=== PATIENT | male | born 1970 ===

== ENCOUNTER 2019-04-20 07:13 | Inpatient (IN) | payer OTHER ==
[2019-04-20 07:55] LABS: Basophils % (Auto) 0.4 % (0.0-1.8); Eosinophils # (Auto) 0.1 K/mm3 (0.0-0.4); Eosinophils % (Auto) 0.7 % (0.0-4.3); Hematocrit 38.9 % (35.5-45.6); Hemoglobin 13.1 gm/dl (11.8-15.2); Lymphocytes # (Auto) 3.4 K/mm3 (1.2-5.4); Lymphocytes % (Auto) 31.9 % (13.4-35.0); Mean Corpuscular HGB Conc 34 % (32-34); Mean Corpuscular Volume 85 fl (84-94); Monocytes # (Auto) 0.7 K/mm3 (0.0-0.8); Monocytes % (Auto) 6.2 % (0.0-7.3); Platelet Count 257 K/mm3 (140-440); Red Blood Count 4.56 M/mm3 (3.65-5.03); Red Cell Distribution Width 14.3 % (13.2-15.2)
[2019-04-20 08:15] LABS: BUN/Creatinine Ratio 71; Blood Urea Nitrogen 50 mg/dL (9-20); Calcium 8.6 mg/dL (8.4-10.2); Hemolysis Index 7
[2019-04-20 08:29] LABS: INR 0.96 (0.87-1.13)
[2019-04-20 08:30] LABS: Partial Thromboplastin Time 27.9 Sec. (24.2-36.6)
[2019-04-20] MEDS ORDERED: PROTONIX IV ONE (08:54)
[2019-04-20] MEDS ORDERED: NACL 0.9% 1000 ML 2,000 ML IV ONE (08:54)
[2019-04-20] MEDS ORDERED: PEPCID IV ONE (08:54)
[2019-04-20] MEDS ORDERED: ZOFRAN IV ONE (08:55)
--- NOTE | 2019-04-20 08:55 | Emergency Department Report ---
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 He presents to the emergency room with a complaint of black stool, resolved nausea, malaise and fatigue which started yesterday. He currently denies all physical pain. He denies headache, neck pain, chest pain, abdominal pain, shortness of breath, urinary symptoms. He indicates he does not take systemic anticoagulation. He reports that yesterday, he was outside, doing yardwork, and he felt somewhat nauseous and weak. He thinks it is had rectal bleeding in the past, a few years ago, in [facility], but he cannot recall the details. His nausea and weakness is now resolved, the black stools constant, it is painless, it does not radiate anywhere, and does not have exacerbating or relieving factors. MD complaint: melena -: Gradual Radiation: none Severity scale (0 -10): 0 Consistency: constant Improves with: none Worsens with: none Context: history of GI bleed Associated Symptoms: nausea - Related Data Allergies Allergy/AdvReac Type Severity Reaction Status Date / Time No Known Allergies Allergy Unverified 04/20/19 07:19 ED Review of Systems ROS: Stated complaint: HBP Other details as noted in HPI Constitutional: malaise. denies: fever, weakness Eyes: denies: eye discharge ENT: denies: epistaxis Respiratory: denies: cough Cardiovascular: denies: chest pain Gastrointestinal: melena. denies: abdominal pain, vomiting, hematemesis, hematochezia Genitourinary: denies: dysuria Musculoskeletal: denies: back pain Skin: denies: lesions Neurological: weakness Psychiatric: denies: anxiety ED Past Medical Hx - Past Medical History Hx Hypertension: Yes - Social History Smoking Status: Unknown if ever smoked ED Physical Exam - General Limitations: Language Barrier General appearance: alert, in no apparent distress - Head Head exam: Present: atraumatic, normocephalic - Eye Eye exam: Present: normal appearance, EOMI. Absent: nystagmus - ENT ENT exam: Present: normal exam, normal orophraynx, mucous membranes moist, normal external ear exam - Neck Neck exam: Present: normal inspection, full ROM. Absent: tenderness, meningismus - Respiratory Respiratory exam: Present: normal lung sounds bilaterally. Absent: respiratory distress - Cardiovascular Cardiovascular Exam: Present: normal rhythm, tachycardia, normal heart sounds. Absent: systolic murmur, diastolic murmur, rubs, gallop - GI/Abdominal GI/Abdominal exam: Present: soft. Absent: distended, tenderness, guarding, r ebound, rigid, pulsatile mass - Rectal Rectal exam: Present: normal inspection, heme (+) stool, black stool, other (chaperoned by nurse Brandy Grace). Absent: bloody stool, fecal impaction, hemorrhoids, mass, tenderness, normal prostate, prostate tenderness, prostate enlargement - Extremities Exam Extremities exam: Present: normal inspection, full ROM, other (2+ pulses noted in the bilateral upper, lower extremities. Compartments soft. No long bony tenderness. The pelvis is stable.). Absent: pedal edema, joint swelling, calf tenderness - Back Exam Back exam: Present: normal inspection, full ROM. Absent: tenderness, CVA tenderness (R), CVA tenderness (L), vertebral tenderness - Neurological Exam Neurological exam: Present: alert, other (Extraocular movements intact. Tongue midline. No facial droop. Facial sensation intact to light touch in the V1, V2, V3 distribution bilaterally. 5 and 5 strength in 4 extremities.. Sensation is intact to light touch in 4 extremities.). Absent: motor sensory deficit - Psychiatric Psychiatric exam: Present: normal affect, normal mood - Skin Skin exam: Present: warm, dry, intact, normal color. Absent: rash ED Course Vital Signs 04/20/19 04/20/19 04/20/19 07:40 07:58 08:04 Temperature 100.0 F H Pulse Rate 106 H 108 H Respiratory 18 18 18 Rate Blood Pressure 130/82 121/76 [Right] O2 Sat by Pulse 18 L 99 Oximetry 04/20/19 04/20/19 08:50 08:52 Temperature 99.8 F H Pulse Rate 122 H Respiratory 18 Rate Blood Pressure 136/84 [Right] O2 Sat by Pulse 99 Oximetry - Reevaluation(s) Reevaluation #1: 04/20/19 09:55 Discussed with gastroenterology, Dr. Hernandez, who agrees with plan of care and indicates his group will follow in consultation. ED Medical Decision Making - Lab Data Result diagrams: 04/20/19 07:46 04/20/19 07:46 Vital Signs 04/20/19 04/20/19 04/20/19 07:40 07:58 08:04 Temperature 100.0 F H Pulse Rate 106 H 108 H Respiratory 18 18 18 Rate Blood Pressure 130/82 121/76 [Right] O2 Sat by Pulse 18 L 99 Oximetry 04/20/19 04/20/19 08:50 08:52 Temperature 99.8 F H Pulse Rate 122 H Respiratory 18 Rate Blood Pressure 136/84 [Right] O2 Sat by Pulse 99 Oximetry Labs 04/20/19 04/20/19 04/20/19 07:46 07:46 08:02 WBC 10.7 RBC 4.56 Hgb 13.1 Hct 38.9 MCV 85 MCH 29 MCHC 34 RDW 14.3 Plt Count 257 Lymph % (Auto) 31.9 [place] % (Auto) 6.2 Eos % (Auto) 0.7 Baso % (Auto) 0.4 Lymph # 3.4 [place] # 0.7 Eos # 0.1 Baso # 0.0 Seg Neutrophils % 60.8 Seg Neutrophils # 6.5 PT 13.4 INR 0.96 APTT 27.9 Sodium 139 Potassium 3.8 Chloride 100.1 Carbon Dioxide 23 Anion Gap 20 BUN 50 H Creatinine 0.7 L Estimated GFR > 60 BUN/Creatinine Ratio 71 Glucose 182 H Calcium 8.6 - EKG Data -: EKG Interpreted by N[place] EKG shows normal: sinus rhythm Rate: tachycardia - EKG Data When compared to previous EKG there are: previous EKG unavailable 04/20/19 09:45 Sinus tachycardia, 117 bpm, normal axis, QTC prolonged, not having chest pain, there is no prior for comparison, this is an abnormal EKG, this EKG is not consistent with ST elevation myocardial infarction. - Medical Decision Making Differential diagnosis, including not limited to: GERD, gastritis, hiatal hernia, malignancy, upper GI bleed Assessment and plan: 48-year-old gentleman who was tachycardic, has black tarry stool, guaiac positive, not on systemic anticoagulation, elevated blood urea nitrogen with normal creatinine, suggestive of upper GI bleed. He is afebrile and hemodynamically stable. He appears quite comfortable. He is not having any abdominal pain at this time. 2 large-bore IVs have been ordered. Protonix and Pepcid have been ordered. Nothing by mouth status has been ordered. Recommended admission for presumed upper GI bleed. Discussed this with patient, using quality control lab tech, the patient endorses and verbalizes understanding. Hospital physician, Dr. Middleton to admit patient to the medical service. Gastroenterology application spec has been paged, we are waiting for them to call back. Critical care attestation.: If time is entered above; I have spent that time in minutes in the direct care of this critically ill patient, excluding procedure time. ED Disposition Clinical Impression: UGIB (upper gastrointestinal bleed) Disposition: OP ADMIT IP TO THIS HOSP Is pt being admited?: Yes Does the pt Need Aspirin: No Condition: Serious Referrals: NILAY FLORES MD [Primary Care Provider] - 3-5 Days Forms: Accompanied Note
[2019-04-20] MEDS: NACL 0.9% 1000 ML 1,000 ML IV ONE ×2 (09:02→10:15)
--- NOTE | 2019-04-20 10:26 | History and Physical Report ---
History of Present Illness Date of examination: 04/20/19 Chief complaint: Black stools History of present illness: Patient is a 48 yo [place]ic speaking man with a history of hypertension and prior black stools in 2016 in [facility] who presents with one episode of severe black tarry stool x 1 days with nausea but vomiting or radiating abd pains. There is no aggravating or relieving factor. He denies nsaids but I am not sure he understood the question. He denies headache, neck pain, chest pain, abdominal pain, shortness of breath, urinary symptoms. He indicates he does not take systemic anticoagulation. He reports that yesterday, he was outside, doing yardwork, and he felt somewhat nauseous and weak. He black stools the past, a few years ago, in [facility], he believes it was related to beer but he cannot recall the details but he was admitted to the hospital (he thinks beer is not as bad as "alcohol" but he doesn't drink anymore). He doesn't think he had an EGD or colonoscopy. +FOBT in ED. Insurance Plan Specialist service used. PMH: as hpi PSH: he denies any surgeries SH: he denies tob use/etoh abuse/drug abuse FH: he denies hypertension, DM ROS: Constitutional: denies: fever ENT: denies: throat or neck pain Respiratory: denies: cough, shortness of breath Cardiovascular: denies: chest pain Endocrine: denies unexplained weight loss or gain Gastrointestinal: denies: abdominal pain, +nausea Genitourinary: denies: dysuria Rectal: denies no incontinence, no bleeding, no itching, no discharge Musculoskeletal: denies swelling, myaglia, muscle weakness Skin: denies: rash Neurological: denies: headache Hematological/Lymphatic: denies: easy bleeding or easy bruising Allergic/Immunologic: no urticaria, no allergic rhinitis, no anaphylaxis Psych: denies sadness or hopelessness, SI/HI Medications and Allergies Allergies Allergy/AdvReac Type Severity Reaction Status Date / Time No Known Allergies Allergy Unverified 04/20/19 07:19 Exam - Physical Exam Narrative exam: Gen: WDWN, NAD, Awake, Alert, Orientated x 3 HEENT: NCAT, EOMI, PERRL, OP Clear Neck: supple, no adenopathy, no thyromegaly, no JVD CVS/Heart: RRR, normal S1S2, pulses present bilaterally Chest/Lungs: CTA B, Symmetrical chest expansion, good air entry bilaterally GI/Abdomen: soft, NTND, good bowel sounds, no guarding or rebound /Bladder: no suprapubic tenderness, no CVA or paraspinal tenderness Extermity/Skin: no c/c/e, no obvious rash MSK: FROM x 4 Neuro: CN 2-12 grossly intact, no new focal deficits Psych: calm - Constitutional Vitals: Temp Pulse Resp BP Pulse Ox 99.8 F H 122 H 18 136/84 99 04/20/19 08:50 04/20/19 08:52 04/20/19 08:52 04/20/19 08:52 04/20/19 08:52 Results - Labs CBC & Chem 7: 04/20/19 07:46 04/20/19 07:46 Labs: Abnormal lab results 04/20/19 Range/Units 07:46 BUN 50 H (9-20) mg/dL Creatinine 0.7 L (0.8-1.5) mg/dL Glucose 182 H (75-100) mg/dL Assessment and Plan Patient is a 48 yo Icelandic speaking man with a history of hypertension and prior black stools in 2016 in [facility] who presents with one episode of severe black tarry stool x 1 days with nausea but vomiting or radiating abd pains. There is no aggravating or relieving factor. He denies nsaids but I am not sure he understood the question. He denies headache, neck pain, chest pain, abdominal pain, shortness of breath, urinary symptoms. He indicates he does not take systemic anticoagulation. He reports that yesterday, he was outside, doing yardwork, and he felt somewhat nauseous and weak. He black stools the past, a few years ago, in [facility], he believes it was related to beer but he cannot recall the details but he was admitted to the hospital (he thinks beer is not as bad as "alcohol" but he doesn't drink anymore). He doesn't think he had an EGD or colonoscopy. +FOBT in ED UGIB with normal H/H: monitor h/h closely, treat with ppi, GI consulted, npo until GI evaluates SIRS without organ dysfunction: treat with IVFs, ordered blood cultures, UA and pCXR Hyperglycemia without diagnosis of DM: check a1c, repeat bmp am fasting Hypertension: low salt diet Nausea: treat with iv zofran DVT ppx: scd due to ugib history GI ppx: iv protonix full code home med rec not done Follow up on a1c, ua, blood cultures, pCXR
[2019-04-20] MEDS ORDERED: ZOFRAN IV PRN (10:31)
[2019-04-20] MEDS ORDERED: PROTONIX IV SCH (11:00)
--- NOTE | 2019-04-20 11:26 | XRay Report ---
AP CHEST: HISTORY: Low-grade fever, nausea and vomiting AP view of the chest demonstrates a normal mediastinal and cardiac contour with clear lungs and normal bony and soft tissue structures. IMPRESSION: Unremarkable AP chest.
[2019-04-20] MEDS: NACL 0.9% 1000 ML 1,000 ML IV SCH (12:33)
--- NOTE | 2019-04-20 13:15 | Consultation ---
History of Present Illness - Reason for Consult Consult date: 04/20/19 Melena Requesting physician: FRANSISCO KELLOGG - History of Present Illness Mr. Watts is a 48-year-old [facility] man who apparently came to the emergency room because he thought his blood pressure was high, and because he had a black bowel movement today. He did have some nausea. He denies abdominal pain or vomiting. He has a history of having something similar in [facility] for which he was being treated with medications from there. There is no chest pain shortness of breath or lightheadedness. He does take an aspirin daily for the last 9 years for something related to his heart. There is no history of recent alcohol use, and no history of liver disease. Past History Past Medical History: hypertension Past Surgical History: No surgical history Social history: denies: smoking, alcohol abuse Medications and Allergies Allergies Allergy/AdvReac Type Severity Reaction Status Date / Time No Known Allergies Allergy Unverified 04/20/19 07:19 Home Medications Medication Instructions Recorded Confirmed Last Taken Type Losartan/Hydrochlorothiazide 1 each PO QAM 04/20/19 04/20/19 04/20/19 History [Losartan-Hctz 100-25 mg Tab] Active Meds: Active Medications Sodium Chloride (Nacl 0.9% 1000 Ml) 1,000 mls @ 100 mls/hr IV DIRECT SAMSON Last Admin: 04/20/19 12:33 Dose: 100 mls/hr Documented by: Ondansetron HCl (Zofran) 4 mg IV Q4H PRN PRN Reason: Nausea And Vomiting Pantoprazole Sodium (Protonix) 40 mg IV BID SAMSON Review of Systems All systems: negative (as noted) Exam - Constitutional Vitals: Temp Pulse Resp BP Pulse Ox 99.2 F 107 H 18 140/88 100 04/20/19 12:29 04/20/19 12:29 04/20/19 12:29 04/20/19 12:29 04/20/19 12:29 General appearance: Present: no acute distress - EENT Eyes: Present: PERRL, EOM intact ENT: hearing intact - Neck Neck: Present: supple - Respiratory Respiratory effort: normal Respiratory: bilateral: CTA - Cardiovascular Rhythm: regular Heart Sounds: Present: S1 & S2 - Extremities Extremities: No edema - Abdominal General gastrointestinal: Present: soft, non-tender - Rectal Rectal Exam: other (Melena, Heme+ per ER) Results - Labs CBC & Chem 7: 04/20/19 07:46 04/20/19 07:46 Labs: Abnormal lab results 04/20/19 Range/Units 07:46 BUN 50 H (9-20) mg/dL Creatinine 0.7 L (0.8-1.5) mg/dL Glucose 182 H (75-100) mg/dL Assessment and Plan 1. Melena - could be related to PUD, though pt asymptomatic and H/H normal. BUN/Cr is elevated. - agree with PPI - will do EGD to assess - monitor H/H and transfuse as needed.
[2019-04-20] MEDS ORDERED: DIPRIVAN 10 MG/ML IV ONE ×2 (13:46→13:52)
--- NOTE | 2019-04-20 14:02 | Post Operative Note ---
Pre-op diagnosis: Melena Post-op diagnosis: other (Prepyloric ulcer with visible vessel) Findings: 1. Prepyloric ulcer, 1 cm, cratered, with visible vessel, and small amount of adherent blood. 5 clips placed in total. 2. Otherwise normal EGD 3. No evidence of active bleeding. Procedure: EGD with clip placement Anesthesia: MAC Surgeon: KUNAL BAUTISTA Estimated blood loss: none Pathology: none Condition: stable Disposition: floor (1. IV PPI drip x 48 hrs. 2. Monitor H/H and transfuse as needed. 3. Clear liquids tomorrow.)
[2019-04-20] MEDS ORDERED: NEO SYNEPHRINE/NS Syringe(OR USE) IV ONE (14:21)
--- NOTE | 2019-04-20 14:24 | Anesthesia Consultation ---
Anesthesia Consult and Med Hx Date of service: 04/20/19 - Airway Anesthetic Teeth Evaluation: Good ROM Head & Neck: Adequate Mental/Hyoid Distance: Adequate Mallampati Class: Class II Intubation Access Assessment: Probably Good - Pre-Operative Health Status ASA Pre-Surgery Classification: ASA2, Emergency Proposed Anesthetic Plan: MAC - Cardiovascular System Hx Hypertension: Yes - Gastrointestinal Hx Ulcer: Yes Hx Gastroesophageal Reflux Disease: Yes - Hematic Hx Anemia: Yes - Other Systems Hx Obesity: Yes (overweight)
--- NOTE | 2019-04-20 14:24 | Operative Report ---
PROCEDURE: Upper endoscopy with clip placement. PREOPERATIVE DIAGNOSIS: Melena. POSTOPERATIVE DIAGNOSIS: Prepyloric ulcer with visible vessel. SEDATION: MAC by Anesthesia. HISTORY: The patient is a 48-year-old man who was well until this morning when he had a bout of melena and some nausea. His hemoglobin is normal. Procedure indications, risks, and benefits were explained and consent was obtained. The patient was placed in left lateral decubitus position and sedated. [employer] video upper scope was passed through the mouth and oropharynx into the descending duodenum. Scope was then gradually withdrawn with close inspection of mucosa. FINDINGS: 1. Normal appearing esophagus. 2. 1 cm, cratered, prepyloric ulcer with visible vessel and some small amount of fresh adherent blood. There was no active bleeding. A total of 5 clips were deployed before it was felt that the proper closure of the ulcer and treatment of the vessel was achieved. There was no bleeding. 3. Remainder of gastric antrum, fundus, body, and cardia are normal appearing. 4. Normal appearing duodenal bulb and duodenum. The patient tolerated the procedure well without immediate complications. IMPRESSION: 1. Prepyloric ulcer with visible vessel -- clips placed. 2. Otherwise, normal upper endoscopy. PLAN: 1. IV PPI drip. 2. Monitor H and H and transfuse as needed. 3. Clear liquids starting tomorrow. 4. Check H. pylori antibody. JOB# [id number] HRC/NTS
--- NOTE | 2019-04-20 14:25 | Anesthesia Day of Surgery ---
Anesthesia Day of Surgery - Day of Surgery Patient Examined: Yes Patient H&P Reviewed: Yes Patient is NPO: Yes
[2019-04-20] MEDS ORDERED: PROTONIX 80 MG in NACL 0.9% 100 ML IV SCH (15:00)
[2019-04-20 16:49] LABS: Hemoglobin 11.6 gm/dl (11.8-15.2)
[2019-04-21] MEDS: NACL 0.9% 1000 ML 1,000 ML IV SCH ×2 (05:13→15:15)
[2019-04-21 05:23] LABS: Hematocrit 30.7 % (35.5-45.6); Hemoglobin 10.5 gm/dl (11.8-15.2); Mean Corpuscular HGB Conc 34 % (32-34); Mean Corpuscular Volume 86 fl (84-94); Platelet Count 224 K/mm3 (140-440); Red Blood Count 3.57 M/mm3 (3.65-5.03); Red Cell Distribution Width 14.7 % (13.2-15.2)
[2019-04-21 05:47] LABS: Alanine Aminotransferase 11 units/L (7-56); Albumin 3.4 g/dL (3.9-5); BUN/Creatinine Ratio 36; Blood Urea Nitrogen 25 mg/dL (9-20); Calcium 8.2 mg/dL (8.4-10.2); Hemolysis Index 4
--- NOTE | 2019-04-21 08:28 | Progress Note ---
Assessment and Plan Assessment and plan: Patient is a 48 yo [place] speaking man with a history of hypertension and prior black stools in 2016 in [facility] who presents with one episode of severe black tarry stool x 1 days with nausea but vomiting or radiating abd pains. There is no aggravating or relieving factor. He denies nsaids but I am not sure he understood the question. He denies headache, neck pain, chest pain, abdominal pain, shortness of breath, urinary symptoms. He indicates he does not take systemic anticoagulation. He reports that yesterday, he was outside, doing yardwork, and he felt somewhat nauseous and weak. He black stools the past, a few years ago, in [facility], he believes it was related to beer but he cannot recall the details but he was admitted to the hospital (he thinks beer is not as bad as "alcohol" but he doesn't drink anymore). He doesn't think he had an EGD or colonoscopy. +FOBT in ED. He went for EGD which showed peptic ulcer with visible vessel; moved to [facility] EGD: Pre-op diagnosis: Melena Post-op diagnosis: other (Prepyloric ulcer with visible vessel) Findings: 1. Prepyloric ulcer, 1 cm, cratered, with visible vessel, and small amount of adherent blood. 5 clips placed in total. 2. Otherwise normal EGD 3. No evidence of active bleeding. Procedure: EGD with clip placement Anesthesia: MAC Surgeon: KUNAL BAUTISTA Estimated blood loss: none Pathology: none Condition: stable Disposition: floor (1. IV PPI drip x 48 hrs. 2. Monitor H/H and transfuse as needed. 3. Clear liquids tomorrow.) Acute hemorrhage PUD UGIB with drop in H/H: monitor h/h closely, treat with ppi, GI consulted, npo until GI evaluates SIRS without organ dysfunction: treat with IVFs, ordered blood cultures, UA and pCXR Hyperglycemia without diagnosis of DM: borderline a1c, repeat bmp am fasting Hypertension: low salt diet Nausea: treat with iv zofran DVT ppx: scd due to ugib GI ppx: iv protonix full code home med rec not done A1C with 5.9, ua uncollected, blood cultures pending, pCXR unremarkable History Interval history: Patient was seen and examined. Follow-up on current diagnosis of PUD. No overnight events reported to me. Patient denies any chest pain, shortness breath, nausea/vomiting or severe headaches. Imaging, nursing note, chart, labs and old chart reviewed. Discussed with patient. Hospitalist Physical - Physical exam Narrative exam: Gen: WDWN, NAD, Awake, Alert, Orientated x 3 HEENT: NCAT, EOMI, PERRL, OP Clear Neck: supple, no adenopathy, no thyromegaly, no JVD CVS/Heart: RRR, normal S1S2, pulses present bilaterally Chest/Lungs: CTA B, Symmetrical chest expansion, good air entry bilaterally GI/Abdomen: soft, NTND, good bowel sounds, no guarding or rebound /Bladder: no suprapubic tenderness, no CVA or paraspinal tenderness Extermity/Skin: no c/c/e, no obvious rash MSK: FROM x 4 Neuro: CN 2-12 grossly intact, no new focal deficits Psych: calm - Constitutional Vitals: Temp Pulse Resp BP Pulse Ox 98.7 F 94 H 12 128/78 98 04/21/19 07:00 04/20/19 17:42 04/21/19 03:00 04/20/19 17:42 04/21/19 03:00 General appearance: Present: no acute distress Results - Labs CBC & Chem 7: 04/21/19 04:25 04/21/19 04:25 Labs: Laboratory Last Values WBC 9.1 K/mm3 (4.5-11.0) 04/21/19 04:25 RBC 3.57 M/mm3 (3.65-5.03) L 04/21/19 04:25 Hgb 10.5 gm/dl (11.8-15.2) L 04/21/19 04:25 Hct 30.7 % (35.5-45.6) L 04/21/19 04:25 MCV 86 fl (84-94) 04/21/19 04:25 MCH 29 pg (28-32) 04/21/19 04:25 MCHC 34 % (32-34) 04/21/19 04:25 RDW 14.7 % (13.2-15.2) 04/21/19 04:25 Plt Count 224 K/mm3 (140-440) 04/21/19 04:25 Lymph % (Auto) 31.9 % (13.4-35.0) 04/20/19 07:46 [place] % (Auto) 6.2 % (0.0-7.3) 04/20/19 07:46 Eos % (Auto) 0.7 % (0.0-4.3) 04/20/19 07:46 Baso % (Auto) 0.4 % (0.0-1.8) 04/20/19 07:46 Lymph # 3.4 K/mm3 (1.2-5.4) 04/20/19 07:46 [place] # 0.7 K/mm3 (0.0-0.8) 04/20/19 07:46 Eos # 0.1 K/mm3 (0.0-0.4) 04/20/19 07:46 Baso # 0.0 K/mm3 (0.0-0.1) 04/20/19 07:46 Seg Neutrophils % 60.8 % (40.0-70.0) 04/20/19 07:46 Seg Neutrophils # 6.5 K/mm3 (1.8-7.7) 04/20/19 07:46 PT 13.4 Sec. (12.2-14.9) 04/20/19 08:02 INR 0.96 (0.87-1.13) 04/20/19 08:02 APTT 27.9 Sec. (24.2-36.6) 04/20/19 08:02 Sodium 142 mmol/L (137-145) 04/21/19 04:25 Potassium 3.8 mmol/L (3.6-5.0) 04/21/19 04:25 Chloride 108.0 mmol/L (98-107) H 04/21/19 04:25 Carbon Dioxide 24 mmol/L (22-30) 04/21/19 04:25 14 mmol/L 04/21/19 04:25 BUN 25 mg/dL (9-20) H 04/21/19 04:25 0.7 mg/dL (0.8-1.5) L 04/21/19 04:25 Estimated GFR > 60 ml/min 04/21/19 04:25 36 % 04/21/19 04:25 Glucose 102 mg/dL (75-100) H 04/21/19 04:25 5.9 % (4-6) 04/20/19 16:27 Calcium 8.2 mg/dL (8.4-10.2) L 04/21/19 04:25 0.60 mg/dL (0.1-1.2) 04/21/19 04:25 AST 12 units/L (5-40) 04/21/19 04:25 ALT 11 units/L (7-56) 04/21/19 04:25 46 units/L (35-129) 04/21/19 04:25 5.5 g/dL (6.3-8.2) L 04/21/19 04:25 3.4 g/dL (3.9-5) L 04/21/19 04:25 1.6 % 04/21/19 04:25 Blood Type O POSITIVE 04/20/19 09:11 Antibody Screen Negative 04/20/19 09:11 Active Medications - Current Medications Current Medications: Generic Name Dose Route Start Last Admin Trade Name Freq PRN Reason Stop Dose Admin Sodium Chloride 1,000 mls @ 100 mls/hr 04/20/19 11:00 04/21/19 05:13 Nacl 0.9% 1000 Ml IV 100 mls/hr DIRECT SAMSON Administration Pantoprazole Sodium 80 mg/ 100 mls @ 10 mls/hr 04/20/19 15:00 04/20/19 20:06 Sodium Chloride IV 8 mg/hr DIRECT SAMSON 10 mls/hr Administration 8 MG/HR Ondansetron HCl 4 mg 04/20/19 10:31 Zofran IV Q4H PRN Nausea And Vomiting
[2019-04-21 09:47] LABS: Bacteria,Urine 1+ /HPF (Negative); Bilirubin,Urine NEG (Negative); Blood,Urine NEG (Negative); Color,Urine Yellow (Yellow); Mucus,Urine FEW /HPF; Protein,Urine <15 mg/dL mg/dL (Negative); Urobilinogen,Urine < 2.0 mg/dL (<2.0)
[2019-04-21 11:33] VITALS: BP 103/55
--- NOTE | 2019-04-21 12:38 | Gastroenterology Progress Note ---
<TRAM DE SANTIAGO - Last Filed: 04/21/19 12:38> Assessment and Plan 1.UGIB 2.melena -H/H 10.5/30.7-slight drop -continue to monitor H/H and transfuse as needed -no active signs of bleeding overnight or this am -s/p EGD yesterday that showed a prepyloric ulcer (1 cm) cratered, with visible vessel and small amount of adherent blood (5 clips placed) -clinically, patient is stable. Denies abd pain or N/V. -okay to start on clear liquids -continue protonix drip x 48 hrs -avoid NSAIDs -continue supportive care -will follow Subjective Date of service: 04/21/19 Principal diagnosis: UGIB Interval history: Patient resting in bed w/o acute distress. No active signs of bleeding overnight or this am per pt/nursing. Denies abd pain or N/V. Objective - Constitutional Vitals: Temp Pulse Resp BP Pulse Ox 98.1 F 78 15 103/55 100 04/21/19 11:00 04/21/19 11:30 04/21/19 11:30 04/21/19 11:30 04/21/19 11:30 General appearance: no acute distress - Respiratory Respiratory effort: normal Respiratory: bilateral: CTA - Cardiovascular Rhythm: regular - Gastrointestinal General gastrointestinal: Present: soft, non-tender, non-distended, normal bowel sounds - Neurologic Neurological: alert and oriented x3 - Labs CBC & Chem 7: 04/21/19 04:25 04/21/19 04:25 Labs: Laboratory Results - last 24 hr 04/20/19 04/20/19 04/21/19 16:20 16:27 04:25 WBC 9.1 RBC 3.57 L Hgb 11.6 L 10.5 L Hct 35.0 L 30.7 L MCV 86 MCH 29 MCHC 34 RDW 14.7 Plt Count 224 Sodium Potassium Chloride Carbon Dioxide Anion Gap BUN Creatinine Estimated GFR BUN/Creatinine Ratio Glucose Hemoglobin A1c 5.9 Calcium Total Bilirubin AST ALT Alkaline Phosphatase Total Protein Albumin Albumin/Globulin Ratio Urine Color Urine Turbidity Urine pH Ur Specific [place] Urine Protein Urine Glucose (UA) Urine Ketones Urine Blood Urine Nitrite Urine Bilirubin Urine Urobilinogen Ur Leukocyte Esterase Urine WBC (Auto) Urine RBC (Auto) U Epithel Cells (Auto) Urine Bacteria (Auto) Urine Mucus 04/21/19 04/21/19 04:25 09:15 WBC RBC Hgb Hct MCV MCH MCHC RDW Plt Count Sodium 142 Potassium 3.8 Chloride 108.0 H Carbon Dioxide 24 Anion Gap 14 BUN 25 H Creatinine 0.7 L Estimated GFR > 60 BUN/Creatinine Ratio 36 Glucose 102 H Hemoglobin A1c Calcium 8.2 L Total Bilirubin 0.60 AST 12 ALT 11 Alkaline Phosphatase 46 Total Protein 5.5 L Albumin 3.4 L Albumin/Globulin Ratio 1.6 Urine Color Yellow Urine Turbidity Clear Urine pH 5.0 Ur Specific [place] 1.023 Urine Protein <15 mg/dl Urine Glucose (UA) Neg Urine Ketones Neg Urine Blood Neg Urine Nitrite Neg Urine Bilirubin Neg Urine Urobilinogen < 2.0 Ur Leukocyte Esterase Mod Urine WBC (Auto) 22.0 H Urine RBC (Auto) 3.0 U Epithel Cells (Auto) 5.0 Urine Bacteria (Auto) 1+ Urine Mucus Few <KUNAL BAUTISTA R - Last Filed: 04/21/19 16:36> Assessment and Plan Seen and examined. If continues to do well, adv diet in AM, change to po meds, D/C. Check for H pylori. Objective - Constitutional Vitals: Temp Pulse Resp BP Pulse Ox 98.1 F 78 15 103/55 100 04/21/19 11:00 04/21/19 11:30 04/21/19 11:30 04/21/19 11:30 04/21/19 11:30 - Labs CBC & Chem 7: 04/21/19 04:25 04/21/19 04:25 Labs: Laboratory Results - last 24 hr 04/20/19 04/20/19 04/21/19 16:20 16:27 04:25 WBC 9.1 RBC 3.57 L Hgb 11.6 L 10.5 L Hct 35.0 L 30.7 L MCV 86 MCH 29 MCHC 34 RDW 14.7 Plt Count 224 Sodium Potassium Chloride Carbon Dioxide Anion Gap BUN Creatinine Estimated GFR BUN/Creatinine Ratio Glucose Hemoglobin A1c 5.9 Calcium Total Bilirubin AST ALT Alkaline Phosphatase Total Protein Albumin Albumin/Globulin Ratio Urine Color Urine Turbidity Urine pH Ur Specific [place] Urine Protein Urine Glucose (UA) Urine Ketones Urine Blood Urine Nitrite Urine Bilirubin Urine Urobilinogen Ur Leukocyte Esterase Urine WBC (Auto) Urine RBC (Auto) U Epithel Cells (Auto) Urine Bacteria (Auto) Urine Mucus 04/21/19 04/21/19 04:25 09:15 WBC RBC Hgb Hct MCV MCH MCHC RDW Plt Count Sodium 142 Potassium 3.8 Chloride 108.0 H Carbon Dioxide 24 Anion Gap 14 BUN 25 H Creatinine 0.7 L Estimated GFR > 60 BUN/Creatinine Ratio 36 Glucose 102 H Hemoglobin A1c Calcium 8.2 L Total Bilirubin 0.60 AST 12 ALT 11 Alkaline Phosphatase 46 Total Protein 5.5 L Albumin 3.4 L Albumin/Globulin Ratio 1.6 Urine Color Yellow Urine Turbidity Clear Urine pH 5.0 Ur Specific [place] 1.023 Urine Protein <15 mg/dl Urine Glucose (UA) Neg Urine Ketones Neg Urine Blood Neg Urine Nitrite Neg Urine Bilirubin Neg Urine Urobilinogen < 2.0 Ur Leukocyte Esterase Mod Urine WBC (Auto) 22.0 H Urine RBC (Auto) 3.0 U Epithel Cells (Auto) 5.0 Urine Bacteria (Auto) 1+ Urine Mucus Few
[2019-04-22] MEDS: NACL 0.9% 1000 ML 1,000 ML IV SCH (01:43)
[2019-04-22 05:08] LABS: Hematocrit 31.6 % (35.5-45.6); Hemoglobin 10.7 gm/dl (11.8-15.2); Mean Corpuscular HGB Conc 34 % (32-34); Mean Corpuscular Volume 86 fl (84-94); Platelet Count 241 K/mm3 (140-440); Red Blood Count 3.66 M/mm3 (3.65-5.03); Red Cell Distribution Width 14.6 % (13.2-15.2)
[2019-04-22 05:28] LABS: BUN/Creatinine Ratio 17; Blood Urea Nitrogen 10 mg/dL (9-20); Calcium 8.2 mg/dL (8.4-10.2); Hemolysis Index 7
[2019-04-22] MEDS ORDERED: PROTONIX PO SCH (11:00)
--- NOTE | 2019-04-22 12:07 | Gastroenterology Progress Note ---
<TRAM DE SANTIAGO - Last Filed: 04/22/19 12:03> Assessment and Plan 1.UGIB 2.melena -H/H 10.7/31.6-stable -continue to monitor H/H and transfuse as needed -no active signs of bleeding overnight or this am -s/p EGD that showed a prepyloric ulcer (1 cm) cratered, with visible vessel and small amount of adherent blood (5 clips placed) -clinically, patient is stable. Denies abd pain or N/V. Tolerating clears. -okay to advance diet -transition protonix to PO BID -avoid NSAIDs -continue supportive care -patient okay to be d/c per GI standpoint on PPI BID with f/u in ~2 weeks in clinic -will sign off, please call if needed Subjective Date of service: 04/22/19 Principal diagnosis: UGIB Interval history: Patient w/o acute distress. No active signs of bleeding overnight or this am. Denies abd pain or N/V. Tolerating clears. Objective - Constitutional Vitals: Temp Pulse Resp BP Pulse Ox 99.3 F 78 14 103/55 99 04/22/19 08:00 04/21/19 11:30 04/22/19 03:00 04/21/19 11:30 04/22/19 03:00 General appearance: no acute distress - Respiratory Respiratory effort: normal Respiratory: bilateral: CTA - Cardiovascular Rhythm: regular Heart Sounds: Present: S1 & S2 - Gastrointestinal General gastrointestinal: Present: soft, non-tender, non-distended, normal bowel sounds - Neurologic Neurological: alert and oriented x3 - Labs CBC & Chem 7: 04/22/19 04:42 04/22/19 04:42 Labs: Laboratory Results - last 24 hr 04/22/19 04/22/19 04:42 04:42 WBC 9.1 RBC 3.66 Hgb 10.7 L Hct 31.6 L MCV 86 MCH 29 MCHC 34 RDW 14.6 Plt Count 241 Sodium 140 Potassium 3.6 Chloride 106.2 Carbon Dioxide 24 Anion Gap 13 BUN 10 Creatinine 0.6 L Estimated GFR > 60 BUN/Creatinine Ratio 17 Glucose 109 H Calcium 8.2 L <KUNAL BAUTISTA - Last Filed: 04/22/19 13:19> Assessment and Plan As noted. H pylori Ab pending. Pt should f/u in office. Objective - Constitutional Vitals: Temp Pulse Resp BP Pulse Ox 99.3 F 78 14 103/55 99 04/22/19 08:00 04/21/19 11:30 04/22/19 03:00 04/21/19 11:30 04/22/19 03:00 - Labs CBC & Chem 7: 04/22/19 04:42 04/22/19 04:42 Labs: Laboratory Results - last 24 hr 04/22/19 04/22/19 04:42 04:42 WBC 9.1 RBC 3.66 Hgb 10.7 L Hct 31.6 L MCV 86 MCH 29 MCHC 34 RDW 14.6 Plt Count 241 Sodium 140 Potassium 3.6 Chloride 106.2 Carbon Dioxide 24 Anion Gap 13 BUN 10 Creatinine 0.6 L Estimated GFR > 60 BUN/Creatinine Ratio 17 Glucose 109 H Calcium 8.2 L
--- NOTE | 2019-04-22 16:57 | Discharge Summary ---
Providers - Providers Date of Admission: 04/20/19 10:33 Date of discharge: 04/22/19 Attending physician: LIVIA MCCALL 04/20/19 08:53 Consult to Physician [CONS] Urgent Comment: Consulting Provider: SILVINO DOMINGUEZ Physician Instructions: Reason For Exam: ugib Primary care physician: NILAY BROWNING MD Hospitalization Condition: Serious Pertinent studies: EGD prepyloric ulcer 1cm crater. no active bleed Hospital course: pt with melanotic stool had EGD showed shallow ulcer no active bleed stable with trasfusion PPI bid and folow up in two weeks wioth gi H and H stable Disposition: DC- TO HOME OR SELFCARE - Discharge Diagnoses (1) UGIB (upper gastrointestinal bleed) Status: Acute Core Measure Documentation - Palliative Care Palliative Care/ Comfort Measures: Not Applicable - Core Measures Any of the following diagnoses?: none Exam - Constitutional Vitals: Temp Pulse Resp BP Pulse Ox 98.8 F 78 14 103/55 99 04/22/19 11:54 04/21/19 11:30 04/22/19 03:00 04/21/19 11:30 04/22/19 03:00 General appearance: Present: no acute distress, well-nourished - EENT Eyes: Present: PERRL ENT: hearing intact, clear oral mucosa - Neck Neck: Present: supple, normal ROM - Respiratory Respiratory effort: normal Respiratory: bilateral: CTA - Cardiovascular Heart Sounds: Present: S1 & S2. Absent: rub, click - Extremities Extremities: pulses symmetrical, No edema Peripheral Pulses: within normal limits - Abdominal General gastrointestinal: Present: soft, non-tender, non-distended, normal bowel sounds Male genitourinary: Present: normal - Integumentary Integumentary: Present: clear, warm, dry - Musculoskeletal Musculoskeletal: gait normal, strength equal bilaterally - Psychiatric Psychiatric: appropriate mood/affect, intact judgment & insight - Neurologic Neurologic: CNII-XII intact, moves all extremities Plan Activity: no restrictions Weight Bearing Status: Full Weight Bearing Diet: regular Follow up with: NILAY FLORES MD [Primary Care Provider] - 3-5 Days Forms: Accompanied Note Prescriptions: Losartan/Hydrochlorothiazide [Losartan-Hctz 100-25 mg Tab] 1 each PO QAM #30 tablet Pantoprazole [Protonix TAB] 40 mg PO BID #60 tablet
== END 2019-04-22 17:52 | disposition home or self-care (01) | DRG 378 ==
LOC: ED 07:13 → 3A 10:33 → IMCU 21:09
PROVIDERS: ADMIT Internal Medicine; ATTEND Internal Medicine
PROC: 0W3P8ZZ Control Bleeding in Gastrointestinal Tract, Via Natural or Artificial Opening Endoscopic (ICD-10-PCS; principal; 2019-04-20)
DX: K25.4 Chronic or unspecified gastric ulcer with hemorrhage (principal); R65.10 Systemic inflammatory response syndrome (SIRS) of non-infectious origin without acute organ dysfunction; I10 Essential (primary) hypertension; K27.0 Acute peptic ulcer, site unspecified, with hemorrhage; K21.9 Gastro-esophageal reflux disease without esophagitis; E66.9 Obesity, unspecified; R73.9 Hyperglycemia, unspecified; Z68.30 Body mass index [BMI] 30.0-30.9, adult
CPT/HCPCS: 36415; 71045; 80048; 80053; 81001; 82271; 83036; 85014; 85018; 85025; 85027; 85610; 85730; 86850; 86900; 86901; 87040; 87086; 93005; 93010; 96361; 96374; 96375; G0378; C9113; J2370; J2405; J2704; J7030